=== PATIENT | female | born 1980 | race Caucasian/White ===

== ENCOUNTER 2017-02-28 22:15 | Outpatient (CLI) | payer BC ==
[2017-04-08] MEDS ORDERED: PRENATAL VIT1 TAB PO (06:18)
[2017-04-08] MEDS ORDERED: NIPPLECREAM TP (06:19)
[2017-04-08] MEDS ORDERED: MOTRIN-DPS800 MG PO (06:19)
== END 2017-03-01 01:50 | disposition home or self-care (01) ==
LOC: 2LDRP 22:15 → BC 22:15
DX: O99.89 Other specified diseases and conditions complicating pregnancy, childbirth and the puerperium (principal); R10.9 Unspecified abdominal pain; Z3A.32 32 weeks gestation of pregnancy

== ENCOUNTER 2017-04-05 18:00 | Inpatient (IN) | payer BC ==
[~2017-04-05] VITALS: Ht 167.6 cm; Wt 96.2 kg
--- NOTE | ~2017-04-05 | FD ---
ADMIT: 04/05/2017 RM/LOC: 221 [facility] MR#: [id number] [address] [address] [place] [address] Final Diagnosis SEX: F AGE: 36 : 1980 ADMISSION DATE: 04/05/2017 DISCHARGE DATE: 04/07/2017 FINAL DIAGNOSIS: 1. Intrauterine at term. 2. Gestational hypertension. PROCEDURE: Spontaneous vaginal delivery. Aubrie Ibrahim MD/ wan JOB #: [id number] CC: Aubrie Ibrahim MD, Attending Physician Aubrie Ibrahim MD, Family Physician
--- NOTE | ~2017-04-05 | HP ---
ADMIT: 04/05/2017 RM/LOC: 221 [facility] MR#: [id number] [address] [address] ALEXANDRA LARA [address] [place] [address] History and Physical SEX: F AGE: 36 : 1980 DATE OF SERVICE: REASON FOR ADMISSION: Gestational hypertension. HISTORY OF PRESENT ILLNESS: The patient is a 36-year-old, 4, para 1-0- 2-1, who presented to Labor and Delivery at 37-5/7th weeks' gestation by ultrasound with estimated date of confinement of 04/21/2017. The patient's had been complicated by advanced maternal age, Rh negative status, and history of recurrent spontaneous . The patient had been seen in the clinic three days prior and had one blood pressure of 140/90. She then presented to the clinic today for repeat blood pressure check, was noted to have blood pressure of 154/94. Due to this, the patient was diagnosed with gestational hypertension and decision was made to proceed with induction of labor. The patient had negative protein on urine dipstick and denied any signs or symptoms of preeclampsia. LABORATORY DATA: Blood type O negative, antibody screen negative, RPR nonreactive, rubella immune, group B Strep negative, HIV negative, gonorrhea and chlamydia negative, and hepatitis B surface antigen negative. PAST MEDICAL HISTORY: Noncontributory. PAST SURGICAL HISTORY: Benign lump excised from the left breast in 2001. CURRENT MEDICATIONS: vitamins daily. ALLERGIES: NO KNOWN MEDICAL ALLERGIES. FAMILY HISTORY: Mother with history of diabetes. SOCIAL HISTORY: The patient is . She denies any alcohol, tobacco, or drug use. PHYSICAL EXAMINATION: VITAL SIGNS: On admission, blood pressure 122/82, pulse 107, temp 98.4, respirations 18. GENERAL: The patient is alert and oriented, in no acute distress. HEART: Regular rate and rhythm without murmurs, gallops, or rubs. LUNGS: Clear to auscultation bilaterally. ABDOMEN: Soft, nontender, gravid. EXTREMITIES: 2+ edema. No calf tenderness. heart tones are in the 130s with moderate variability and accelerations ADMIT: 04/05/2017 RM/LOC: 221 [facility] MR#: [id number] [id number] [address] [place] [address] History and Physical SEX: F AGE: 36 : 1980 present. Contractions are irregular on admission. Cervix 4 cm dilated, 60% effaced, and -2 station. LABORATORY DATA: Sodium 140, potassium 3.5, chloride 108, CO2 23, BUN 4, creatinine 0.5, uric acid 4.1, ALT 15, AST 17. Protein negative in urine. ASSESSMENT AND PLAN: 1. A 36-year-old, 4, para 1-0-2-1, at 37-5/7th weeks' gestation. 2. Gestational hypertension at term. Plan to proceed with Pitocin induction of labor. We will anticipate a spontaneous vaginal delivery. 3. Rh negative. We will give RhoGAM if indicated . 4. Advanced maternal age. Aubrie Ibrahim MD/ govind JOB #: [id number] CC: Aubrie Ibrahim, Attending Physician Aubrie Ibrahim, Family Physician
[2017-04-08] MEDS ORDERED: PRENATAL VIT1 TAB PO (06:18)
[2017-04-08] MEDS ORDERED: MOTRIN-DPS800 MG PO (06:19)
[2017-04-08] MEDS ORDERED: NIPPLECREAM TP (06:19)
--- NOTE | 2017-05-06 09:38 | OR ---
ADMIT: 04/05/2017 RM/LOC: 221 [facility] MR#: [id number] [address] [address] ALEXANDRA LARA [address] [place] [address] Operative/Delivery Room Report SEX: F AGE: 36 : 1980 SURGERY DATE: 04/06/2017 SURGEON: Aubrie Ibrahim MD PROCEDURE: Removal of epidural catheter. INDICATIONS FOR PROCEDURE: The patient is a 36-year-old, 4, para 1-0- 2-1, who presented to Labor and Delivery at 37-5/7th weeks' gestation for induction of labor secondary to gestational hypertension. The patient received an epidural for pain control during labor. DESCRIPTION OF PROCEDURE: Following delivery, the patient was placed in the sitting position. The patient's epidural catheter was removed without difficulty and oblique head was noted to be intact. The patient tolerated the procedure well. Aubrie Ibrahim MD/ govind JOB #: [id number] CC: Aubrie Ibrahim, Attending Physician Aubrie Ibrahim, Family Physician
--- NOTE | 2017-05-06 09:38 | OR ---
ADMIT: 04/05/2017 RM/LOC: 221 [facility] MR#: [id number] [address] [address] ALEXANDRA LARA [address] [place] [address] Operative/Delivery Room Report SEX: F AGE: 36 : 1980 SURGERY DATE: 04/06/2017 SURGEON: Aubrie Ibrahim MD NAME OF PROCEDURE: Spontaneous vaginal delivery. PREOPERATIVE DIAGNOSES: 1. Intrauterine at 37-5/7th weeks' gestation. 2. Gestational hypertension. 3. Rh negative. 4. Advanced maternal age. POSTOPERATIVE DIAGNOSES: 1. Intrauterine at 37-5/7th weeks' gestation. 2. Gestational hypertension. 3. Rh negative. 4. Advanced maternal age. FINDINGS: Liveborn female infant, scores 8 at 1 minute, 9 at 5 minutes. Weight 8 pounds 9 ounces. ESTIMATED BLOOD LOSS: 150 mL. ANESTHESIA: Epidural. COMPLICATIONS: None. INDICATIONS FOR PROCEDURE: The patient is a 36-year-old, 4, para 1-0- 2-1, who presented to Labor and Delivery at 37-5/7th weeks' gestation by ultrasound with estimated date of confinement of 04/21/2017. The patient had presented to the office for regular appointment earlier in the week and been noted to have warm blood pressure of 140/90, but then blood pressures did normalize. She returned for blood pressure check on 04/05/2017, and was noted to have elevated blood pressure with blood pressure of 154/94. For this reason, the patient was diagnosed with gestational hypertension and decision was made to proceed with induction of labor at term. The patient received Pitocin for induction of labor. She then had her rupture of membranes performed with clear fluid noted. The patient progressed through labor to completely dilated and pushed, bringing the 's vertex to the perineum. PROCEDURE IN DETAIL: The patient was noted to be complete and pushing with ADMIT: 04/05/2017 RM/LOC: 221 [facility] MR#: [id number] [address] [address] [address]LEXANDRA LARA [address] [place] [address] Operative/Delivery Room Report SEX: F AGE: 36 : 1980 the 's vertex at the perineum. The patient pushed and the 's vertex delivered in the ANUEL position over midline. She continued to push, the anterior shoulder delivered, the posterior shoulder followed, and the remainder of the delivered without difficulty as well. The was dried and handed off to the mother's abdomen. Twenty units of Pitocin were placed in IV bag to firm the uterus. The cord was clamped and cut. The placenta then delivered intact spontaneously. Cervix was examined and was noted to be free of lacerations. The vaginal vault and perineum were examined, there was noted to be a small first-degree midline laceration, which was repaired with a single stitch of 3-0 Vicryl. The patient tolerated the procedure well. All sponge and needle counts were correct. The patient and infant recovered in the room in stable condition. Aubrie Ibrahim MD/ govind JOB #: [id number] CC: Aubrie Ibrahim, Attending Physician Aubrie Ibrahim, Family Physician
== END 2017-04-07 12:25 | disposition home or self-care (01) | DRG 775 ==
LOC: 2LDRP 18:00 → BC 18:00 → 2LDRP 18:15 → BC 04-21 08:00
PROVIDERS: ADMIT Obstetrics & Gynecology
PROC: 3E033VJ Introduction of Other Hormone into Peripheral Vein, Percutaneous Approach (ICD-10-PCS; principal; 2017-04-06)
PROC: 10E0XZZ Delivery of Products of Conception, External Approach (ICD-10-PCS; principal; 2017-04-06)
PROC: 0HQ9XZZ Repair Perineum Skin, External Approach (ICD-10-PCS; principal; 2017-04-06)
PROC: 10907ZC Drainage of Amniotic Fluid, Therapeutic from Products of Conception, Via Natural or Artificial Opening (ICD-10-PCS; principal; 2017-04-06)
PROC: 3E0234Z Introduction of Serum, Toxoid and Vaccine into Muscle, Percutaneous Approach (ICD-10-PCS; principal; 2017-04-06)
DX: O13.4 Gestational [pregnancy-induced] hypertension without significant proteinuria, complicating childbirth (principal); O75.89 Other specified complications of labor and delivery; O70.0 First degree perineal laceration during delivery; Z3A.37 37 weeks gestation of pregnancy; Z37.0 Single live birth